=== PATIENT | female | born 1990 | race Caucasian/White ===

== ENCOUNTER 2022-09-07 09:35 | Outpatient (RCR) | payer BC, SELFPAY ==
[2022-08-03 09:06] VITALS: PULSE 138; O2SAT 95
[2022-08-03 09:11] VITALS: PULSE 100; O2SAT 94
[2022-08-03 09:16] VITALS: PULSE 117; O2SAT 95
[2022-08-03 09:21] VITALS: PULSE 130; O2SAT 95
[2022-08-03 09:25] VITALS: BP 113/70; PULSE 131
[2022-08-10 12:27] VITALS: BP 122/76; PULSE 98
[2022-08-17 09:37] VITALS: BP 116/75; PULSE 114
[2022-08-24 09:11] VITALS: BP 112/80
[2022-09-02 14:01] VITALS: BP 111/70; PULSE 93
[2022-09-07 10:09] VITALS: BP 128/77; PULSE 103
--- NOTE | 2022-09-13 12:37 | P.HP_ITS ---
H&P: HPI History of Present Illness Date/Time: 09/13/22 12:37 Chief Complaint: Twin at term who desires permanent sterilization Narrative: Set 32-year-old multiparous patient admitted for repeat section and bilateral tubal ligation for twins and desires permanent sterilization. [facility] Family History Family History Mother Diabetes mellitus Hypertension High cholesterol Father Diabetes mellitus Myasthenia gravis Sibling Hypertension High cholesterol Grandparent Heart disease Uterine cancer Skin cancer Diabetes mellitus Hypertension Dementia Breast cancer in female Social History Social History Substance use: never Spiritual care concerns: No Meds Home Medications and Allergies Home Medications Medication Instructions Recorded Confirmed Type [id number] fum 28 1 pkg PO DAILY 08/03/22 08/03/22 History mg-folic acid 800 mcg-dha 200 mg oral pack ( + DHA) valacyclovir 500 mg tablet 500 mg PO DAILY 08/03/22 08/03/22 History (Valtrex) Allergies Allergy/AdvReac Type Severity Reaction Status Date / Time No Known Allergies Allergy Verified 09/02/22 13:58 Exam Const: General: cooperative, healthy appearing, comfortable and well groomed Nutritional Appearance: average body habitus Orientation/consciousness: oriented to person, oriented to place and oriented to time HENMT: Head: normal to inspection Resp: Effort & Inspection: normal respiratory effort Cardio: Rate: regular rate Rhythm: regular rhythm Heart sounds: S1 normal heart sound present and S2 normal heart sound present GI: Inspection: normal to inspection (Gravid uterus consistent with twins) : External Female Exam: normal external appearance Speculum Exam - Vagina: normal appearance of the vagina Speculum Exam - Cervix: normal appearance of the cervix (Long thick and closed) Assessment and Plan Assessment and plan (1) Twin : Code(s): O30.009 - Twin , unspecified number of placenta and unspecified number of amniotic sacs, unspecified trimester Status: Acute (2) Term : Code(s): Z34.90 - Encounter for supervision of normal , unspecified, unspecified trimester Status: Acute (3) Sterilization: Code(s): Z30.2 - Encounter for sterilization Status: Acute Plan Repeat low transverse section. Bilateral tubal ligation
== END 2022-10-17 18:23 | disposition home or self-care (01) ==
LOC: ANHOBOP 09:35
PROVIDERS: PCP Nurse Practitioner; Visit Provider Obstetrics & Gynecology
DX: O30.003 Twin pregnancy, unspecified number of placenta and unspecified number of amniotic sacs, third trimester (principal); Z3A.32 32 weeks gestation of pregnancy; Z3A.34 34 weeks gestation of pregnancy; Z3A.35 35 weeks gestation of pregnancy; Z3A.36 36 weeks gestation of pregnancy; Z3A.37 37 weeks gestation of pregnancy
CPT/HCPCS: 59025

== ENCOUNTER 2022-09-14 10:41 | Outpatient (CLI) | payer BC, SELFPAY ==
[2022-09-14 11:39] LABS: Hematocrit 35.8 % (37.0-47.0); Mean Corpuscular HGB Conc 33.5 g/dl (32-36); Mean Corpuscular Hemoglobin 29.2 pg (26-34); Mean Corpuscular Volume 87.1 fl (80-100); Mean Platelet Volume 10.7 fl (7.4-10.4); Platelet Count Result 243 k/mm3 (150-375); Red Blood Count 4.11 M/mm3 (4.2-5.4); Red Cell Distribution Width 13.4 % (11.5-14.5); White Blood Count 9.3 K/mm3 (4.5-10.0)
[2022-09-15 10:24] LABS: Rapid Plasma Reagin Non-Reactive (NonReactive)
== END 2022-09-14 10:42 | disposition home or self-care (01) ==
PROVIDERS: PCP Nurse Practitioner; Visit Provider Obstetrics & Gynecology
DX: Z01.812 Encounter for preprocedural laboratory examination (principal)
CPT/HCPCS: 36415; 85027; 86592; 86850; 86900; 86901

== ENCOUNTER 2022-09-15 05:26 | Inpatient (IN) | payer BC, SELFPAY ==
--- NOTE | 2022-09-02 14:20 | PC.NURSE ---
Verified with OR schedule and patient--C/S 0n 09/15/22 at 0730 with Tubal ligation Patient given requisition for lab drawn on 09/14/22
--- NOTE | 2022-09-13 12:39 | HP_ITS ---
This report was moved to the correct visit on 09/26/2022. Original report was signed by Hari Rosenbaum MD 09/13/22 1239. H&P: HPI History of Present Illness Date/Time: 09/13/22 12:37 Chief Complaint: Twin at term who desires permanent sterilization Narrative: Set 32-year-old multiparous patient admitted for repeat section and bilateral tubal ligation for twins and desires permanent sterilization. [facility] Family History Family History Mother Diabetes mellitus Hypertension High cholesterol Father Diabetes mellitus Myasthenia gravis Sibling Hypertension High cholesterol Grandparent Heart disease Uterine cancer Skin cancer Diabetes mellitus Hypertension Dementia Breast cancer in female Social History Social History Substance use: never Spiritual care concerns: No Meds Home Medications and Allergies Home Medications Medication Instructions Recorded Confirmed Type [id number] fum 28 1 pkg PO DAILY 08/03/22 08/03/22 History mg-folic acid 800 mcg-dha 200 mg oral pack ( + DHA) valacyclovir 500 mg tablet 500 mg PO DAILY 08/03/22 08/03/22 History (Valtrex) Allergies Allergy/AdvReac Type Severity Reaction Status Date / Time No Known Allergies Allergy Verified 09/02/22 13:58 Exam Const: General: cooperative, healthy appearing, comfortable and well groomed Nutritional Appearance: average body habitus Orientation/consciousness: oriented to person, oriented to place and oriented to time HENMT: Head: normal to inspection Resp: Effort & Inspection: normal respiratory effort Cardio: Rate: regular rate Rhythm: regular rhythm Heart sounds: S1 normal heart sound present and S2 normal heart sound present GI: Inspection: normal to inspection (Gravid uterus consistent with twins) : External Female Exam: normal external appearance Speculum Exam - Vagina: normal appearance of the vagina Speculum Exam - Cervix: normal appearance of the cervix (Long thick and closed) Assessment and Plan Assessment and plan (1) Twin : Code(s): O30.009 - Twin , unspecified number of placenta and unspecified number of amniotic sacs, unspecified trimester Status: Acute (2) Term : Code(s): Z34.90 - Encounter for supervision of normal , unspecified, unspecified trimester Status: Acute (3) Sterilization: Code(s): Z30.2 - Encounter for sterilization Status: Acute Plan Repeat low transverse section. Bilateral tubal ligation This report may have been done utilizing a voice recognition system. Attempts have been made to correct errors. However, there may be uncorrected grammatical, spelling, and recognition errors present. Report Initialized date/time: Hari Rosenbaum MD 09/13/22 / 1239 Electronically signed by: Hari Rosenbaum MD 09/13/22 1239 [facility]
[2022-09-15] VITALS (63 sets, daily range): BP systolic 85–145; BP diastolic 48–105; PULSE 46–135; RESP 14–18; TEMP 36.2–36.7; O2SAT 94–100; BMI 34.8
--- NOTE | 2022-09-15 05:54 | LDADM ---
This patient, Jorge Wu, was admitted to Labor/Delivery/Recovery 120 on 09/15/22 at 05:26. Plans for labor, pain management and were discussed with patient. Patient/family oriented to hospital policies and general routines including ID bracelet, bed and alarms, visiting hours, pain management, procedures, bathroom and other care routines, personal items, smoking policy, room service/diet and guest tray routines, security routines, and visiting hours. Patient/Family are encouraged to report perceived risks to care and to ask questions if they do not understand what they are told or what they should do. See OBIX for further documentation.
[2022-09-15] MEDS: LACTATED RINGERS 1,000 ML 125 ML IV CONT ×2 (06:34→07:37)
--- NOTE | 2022-09-15 06:35 | WPDANESEPPF ---
Anes - Initial Pre Proc Eval Procedure: Operation Date: 09/15/22 07:30 Proposed Procedures p Repeat Section (Twins) with Bilateral Tubal Ligation - Hari Lozano MD Date/Time: 09/15/22 06:35 Surgeon: Hari Lozano MD Pre Op Diagnosis: Repeat C/S Patient Data Age: 32 Gender: F Height: 1.63 m Weight: 92 kg Last Vital Signs Pulse 92 09/15/22 06:31 BP 125/81 09/15/22 06:31 O2 Del Method Room Air 09/15/22 05:52 Allergies Allergy/AdvReac Type Severity Reaction Status Date / Time No Known Allergies Allergy Verified 09/02/22 13:58 Home Medications Medication Instructions Recorded Confirmed Type [id number] fum 28 1 pkg PO DAILY 08/03/22 08/03/22 History mg-folic acid 800 mcg-dha 200 mg oral pack ( + DHA) valacyclovir 500 mg tablet 500 mg PO DAILY 08/03/22 09/15/22 History (Valtrex) Patient hx anesthesia problems: none Family hx anesthesia problems: none Results Review: All pre-operative results and documents have been reviewed as part of the pre-operative evaluation. [facility] Family History Family History Mother Diabetes mellitus Hypertension High cholesterol Father Diabetes mellitus Myasthenia gravis Sibling Hypertension High cholesterol Grandparent Heart disease Uterine cancer Skin cancer Diabetes mellitus Hypertension Dementia Breast cancer in female Social History Social History Smoking status: Never smoker Substance use: never Lack of Transportation: No Lack of Food: Never True Current Housing: I Have Housing Concerned About Future Housing: No Difficulty Paying Gas/Electric Bills: No Difficulty Paying for Meds: No Currently Unemployed: No Education: Master's Degree or Higher Difficulty w/ Childcare or Family Care: No Spiritual care concerns: No Anes - Eval Final PreProcedure Day of Procedure 09/15/22 06:35 Patient weight: obese Heart: regular rate and rhythm Lungs: clear to auscultation Airway: Mallampati scale class II Neurological: alert and oriented Last oral intake: >/= 8 hours ASA classification: II Emergent: no Anesthetic plan: proceed Anesthesia type and monitoring: regional spinal and standard monitoring Results Review: All pre-operative results and documents have been reviewed as part of the pre-operative evaluation. Informed Consent: The patient's anesthetic plan and its attendant risks and benefits were discussed with the patient/family/POA. Questions were solicited and answers provided to the satisfaction of the patient/family/POA.
--- NOTE | 2022-09-15 06:50 | WPDHPUPDATE1 ---
History and Physical Update Update Date/Time: 09/15/22 06:50 History and Physical has been reviewed, including an updated exam of the patient. There are NO changes in the patient's condition. Risks, benefits, and alternatives have been discussed and questions answered. Patient agrees to proceed with procedure.
[2022-09-15] MEDS: ceFAZolin 2 GM/D5W 50 ML 2 GM/50 ML BAG IVPB (07:47)
--- NOTE | 2022-09-15 08:33 | P.OP_ITS ---
Procedure Note - Detailed Date of Procedure 09/15/22 Pre-op Diagnosis Repeat C/S/ sterilization Post-op Diagnosis Same Procedure Performed repeat low-transverse section and bilateral tubal ligation via modified Surya method Surgeon Hari Lozano MD Anesthesia Spinal Indications this is a 32-year-old female multiparous with twins breech breech at 38 weeks gestation who desires permanent sterilization and previous section Findings baby a male tobi breech 6lb 12oz Apgars 9 and 9 baby B double footling breech female 515 with Apgars of 8 and 9. Normal-appearing anatomy otherwise Description of Procedure patient was prepped draped in the normal sterile fashion placed in the supine position. Under excellent spinal anesthetic the abdomen was entered in Pfannenstiel fashion progressive layers to the fascia. Fascia incised in upward outward fashion bilaterally. Underlying muscles sharply dissected. Parietal peritoneum Jessika by [place] clamps. This was carried superiorly and inferiorly the dome of the bladder. Bladder flap formed bladder blade returned. A low- transverse incision made and baby a delivered at breech to the maternal right legs were swept medially arms were swept medially head delivered in the flexed position. Cord clamped x2 and cut and passed off the table given Apgars of 9 and 9 with a min respectively. Baby B was noted to be double footling breech r upture membranes was performed feet were delivered followed by sweeping of the arms medially and the head delivered in the flexed position. Cord clamped x2 and cut infant passed off the table given Apgars of 8 [id number] 9 [id number]. Cord blood was drawn from each placenta. Placenta delivered intact manually. Uterus delivered from the abdomen wrapped in moist towel. After assuring no membranes remained in the uterus, the uterus was closed with continuous running 0 Vicryl from lateral edge to lateral edge. This followed by 2nd imbricating running locking 0 Vicryl from lateral edge to lateral edge. Hemostasis was assured attention was turned to the tubes. The right fallopian tube was grasped was midportion. Knuckle of tube free tied with 0 chromic. The peritoneum between pierced the distal proximal legs were free tied with 0 chromic in the portion between removed. Hemostasis was assured. This was repeated on the contralateral side by grabbing the fallopian tube at its midportion a good knuckle of tube free formed. Peritoneum between pierced and the distal and proximal legs free tied with 0 chromic. The portion between cut and passed off the table as portion of left fallopian tube. Hemostasis was assured. The uterine incision inspected 1 last time looked hemostatic. Uterus returned the abdomen. Laps removed and accounted for the abdomen. The hysterotomy incision inspected 1 last time noted be hemostatic. The fascia closed with continuous running 0 Vicryl from lateral edge to midline bilaterally. Irrigation subcutaneous layer and skin closed with 4 Monocryl and glue. Blood loss for the entire procedure was given [id number]. All sponge, needle, instrument counts were correct. Mom babies are doing fine the time of dictation there were no immediate complications. Estimated Blood Loss 250 Drains No Packing No Pathology Yes Complications No immediate complications Condition Stable Disposition PACU
[2022-09-15] MEDS: OXYTOCIN 30 UNITS/NS 500 ML 30 UNITS/500 ML BAG 125 UNITS IV CONT (09:01)
[2022-09-15] MEDS: MORPHINE SULFATE INJ (*CRX) 10 MG/ML AMP 3 MG IV PUSH (09:42)
[2022-09-15] MEDS: METHYLERGONOVINE MALEATE 0.2 MG/ML VIAL (09:44)
--- NOTE | 2022-09-15 11:00 | OBPPTRN ---
Patient transferred to post room # 282 via stretcher accompanied by spouse. Infants remain in nursery for observation. Support person present and no barriers to learning identified at this time. Oriented to unit, room, information board, rooming in, admission packet and security measures. Pt introductions made and plan of care discussed per post op c section, pain management, bottle feeding, daily care activities. PT received such instructions per one to one discussion, mom baby care guide and demonstrations this shift. Patient verbalizes understanding.
[2022-09-15] MEDS: HYDROcodone/acetaminophen (*CRX) 10-325 MG TABLET 1 TAB PO ×3 (12:19→22:28)
[2022-09-15] MEDS: DEXTROSE 5%/0.45% SOD CHL 1,000 ML 125 ML IV CONT (13:20)
[2022-09-15] MEDS: LANOLIN (LANSINOH) 7.5 GM CREAM 1 APPLIC TOPICAL (15:44)
[2022-09-15] MEDS: SIMETHICONE 80 MG TAB.CHEW PO ×2 (17:44→22:28)
[2022-09-15] MEDS: POLYSACCHARIDE IRON COMPLEX 150 MG CAPSULE PO (17:44)
[2022-09-15] MEDS: DOCUSATE SODIUM 100 MG CAPSULE PO (17:44)
[2022-09-15] MEDS: IBUPROFEN 600 MG TABLET PO (17:45)
[2022-09-15] MEDS: HYDROcodone/acetaminophen (*CRX) 5-325 MG TABLET 1 TAB PO (19:49)
[2022-09-16] MEDS: SIMETHICONE 80 MG TAB.CHEW PO ×4 (01:28→20:31)
[2022-09-16] MEDS: HYDROcodone/acetaminophen (*CRX) 10-325 MG TABLET 1 TAB PO ×8 (01:28→23:42)
[2022-09-16] MEDS: IBUPROFEN 600 MG TABLET PO ×4 (01:30→23:43)
[2022-09-16 05:33] LABS: Basophils Percent Auto 0.1 % (0.2-1.2); Eosinophils Absolute Auto 0.1 K/mm3 (0-0.3); Hematocrit 28.7 % (37.0-47.0); Hemoglobin 9.2 g/dL (12.0-15.0); Immature Granulocyte Absolute 0.09 K/mm3 (0.00-0.031); Immature Granulocyte Percent A 0.9 % (0-0.5); Lymphocytes Absolute Auto 1.77 K/mm3 (0.9-3.2); Lymphocytes Percent Auto 16.8 % (18.3-44.2); Mean Corpuscular HGB Conc 32.1 g/dl (32-36); Mean Corpuscular Hemoglobin 28.4 pg (26-34); Mean Corpuscular Volume 88.6 fl (80-100); Mean Platelet Volume 11.1 fl (7.4-10.4); Monocytes Absolute Auto 0.7 K/mm3 (0.1-0.6); Monocytes Percent Auto 6.6 % (2.6-8.5); Neutrophils Absolute Auto 7.9 K/mm3 (1.3-6.7); Neutrophils Percent Auto 74.6 % (45.5-73.1); Platelet Count Result 180 k/mm3 (150-375); Red Blood Count 3.24 M/mm3 (4.2-5.4); Red Cell Distribution Width 13.4 % (11.5-14.5); White Blood Count 10.6 K/mm3 (4.5-10.0)
--- NOTE | 2022-09-16 07:24 | PM.DS ---
DS: Admitting Diagnosis Discharge Date 09/17/2022 Admitting Diagnosis term with twins/positive group B strep/previous section /sterilization DS: Discharge Diagnosis Discharge Diagnosis (1) Sterilization: Code(s): Z30.2 - Encounter for sterilization Status: Acute (2) Term : Code(s): Z34.90 - Encounter for supervision of normal , unspecified, unspecified trimester Status: Acute (3) Twin : Code(s): O30.009 - Twin , unspecified number of placenta and unspecified number of amniotic sacs, unspecified trimester Status: Acute DS: Summary Hospital Course Reason for hospitalization: patient was admitted for repeat section and tubal ligation at 38 weeks gestation with twins Hospital Course: patient an unremarkable repeat section tubal ligation on 09/15/2022. Hospital course unremarkable. She remained afebrile. She was up, voiding without difficulty, eating regular diet, ambulating, generally without complaints. Time Spent with Patient Time attestation: Total time spent providing and/or coordinating discharge services: Exam Const: General: cooperative, healthy appearing and comfortable Nutritional Appearance: average body habitus Orientation/consciousness: oriented to person, oriented to place and oriented to time HENMT: Head: normal to inspection Chest: Chest palpation & inspection: normal inspection of the chest Resp: Effort & Inspection: normal respiratory effort Cardio: Rate: regular rate Rhythm: regular rhythm Heart sounds: S1 normal heart sound present and S2 normal heart sound present GI: Inspection: normal to inspection and incision ( Wound clean dry intact) Auscultation: normal bowel sounds DS: Data Data Completed and Pending Pending studies at discharge: Pending at discharge 09/15/22 08:29 Surgical [PTH] Routine Labs on day of discharge: Labs from last 24 hours 09/16/22 04:47 WBC 10.6 H RBC 3.24 L Hgb 9.2 L Hct 28.7 L MCV 88.6 MCH 28.4 MCHC 32.1 RDW 13.4 Plt Count 180 MPV 11.1 H Immature Gran % (Auto) 0.9 H Neut % (Auto) 74.6 H Lymph % (Auto) 16.8 L [place] % (Auto) 6.6 Eos % (Auto) 1.0 Baso % (Auto) 0.1 L Lymph # (Auto) 1.77 [place] # (Auto) 0.7 H Eos # (Auto) 0.1 Baso # (Auto) 0.0 Abs Immat Gran (auto) 0.09 H Absolute Neuts (auto) 7.9 H Absolute Nucleated RBC 0.0 Nucleated RBC % 0.0 Discharge Plan Discharge Attending physician on discharge: Hari Rosenbaum Discharging Clinician: Hari Rosenbaum Patient Disposition: Home, Self-Care Activity: may shower, no straining and pelvic rest Diet: heart healthy Wound Care Instructions: follow printed instructions Patient Instructions: Antibiotic Form Stand Alone Forms: General Discharge Information Follow-up/Referrals: Hari Rosenbaum MD [Physician] - Discharge Medications: New hydrocodone-acetaminophen 5-325 mg tablet 1 tablet PO Q4H PRN (Reason: pain) Qty: 30 0RF No Action valacyclovir [Valtrex] 500 mg Tablet 500 mg PO DAILY + DHA 28 mg iron-800 mcg-200 mg Combo Pack 1 pkg PO DAILY Date of admission: 09/15/22 05:26 Primary Care Provider: Tati,Nette Clark Admitting Provider: Hari Rosenbaum Attending physician on admission: Hari Rosenbaum Condition: Stable
--- NOTE | 2022-09-16 07:26 | PM.OBPNVD ---
OB - PN: Subj Subjective Date/time seen: 09/16/22 07:26 Patient comments: no complaints and pain well controlled baby status: doing well OB - PN: Obj Data Labs 09/16/22 04:47 Labs: Laboratory Results - last 24 hr 09/16/22 04:47 WBC 10.6 H RBC 3.24 L Hgb 9.2 L Hct 28.7 L MCV 88.6 MCH 28.4 MCHC 32.1 RDW 13.4 Plt Count 180 MPV 11.1 H Immature Gran % (Auto) 0.9 H Neut % (Auto) 74.6 H Lymph % (Auto) 16.8 L [place] % (Auto) 6.6 Eos % (Auto) 1.0 Baso % (Auto) 0.1 L Lymph # (Auto) 1.77 [place] # (Auto) 0.7 H Eos # (Auto) 0.1 Baso # (Auto) 0.0 Abs Immat Gran (auto) 0.09 H Absolute Neuts (auto) 7.9 H Absolute Nucleated RBC 0.0 Nucleated RBC % 0.0 OB - PN A/P Plan day: 1 Plan: routine care Time Spent With Patient Time: Total time spent is greater than 50% in coordination of care (as documented) at patient's floor/unit and/or counseling patient: Time with patient: less than 15 minutes Exam Const: General: cooperative, healthy appearing and comfortable Nutritional Appearance: average body habitus Orientation/consciousness: oriented to person, oriented to place and oriented to time HENMT: Head: normal to inspection Resp: Effort & Inspection: normal respiratory effort Cardio: Rate: regular rate Rhythm: regular rhythm Heart sounds: S1 normal heart sound present and S2 normal heart sound present GI: Inspection: normal to inspection and incision ( wound clean dry and intact)
[2022-09-16] MEDS: DOCUSATE SODIUM 100 MG CAPSULE PO ×2 (07:59→17:13)
[2022-09-16] MEDS: POLYSACCHARIDE IRON COMPLEX 150 MG CAPSULE PO ×2 (08:00→17:13)
[2022-09-16 09:12] VITALS: BP 117/64; PULSE 73; RESP 18; TEMP 36.4
--- NOTE | 2022-09-16 14:05 | WPDANLDNPN2 ---
Anes-Prog Note L&D-Neuraxial Date/Time: 09/16/22 14:05 Neuraxial medications: intrathecal PF morphine Patient feedback: Patient satisfied with post-operative pain management.
--- NOTE | 2022-09-16 14:09 | WPDANLDPN2 ---
Anes-Prog Note L&D Date/Time: 09/16/22 14:09 Comfortable throughout: section Neuraxial method: spinal Epidural/Spinal procedure site: clean & non-tender Neuro status: Neuro function grossly intact. Cardiovascular status: normal Respiratory status: normal Airway patency: baseline Mental status: baseline Post-Op hydration status: normal Vital Signs: Last Vital Signs Temp 36.4 C 09/16/22 09:12 Pulse 73 09/16/22 09:12 Resp 18 09/16/22 09:12 BP 117/64 09/16/22 09:12 Pulse Ox 97 09/15/22 17:44 O2 Del Method Room Air 09/16/22 09:12 Pain score (VAS): 3/10 I/O: Intake & Output 09/15/22 09/16/22 09/16/22 23:59 07:59 15:59 Intake Total 2600 500 Output Total 800 1100 Balance 1800 -600 Post-procedural complaints: none Patient feedback: Patient satisfied with anesthetic care.
[2022-09-16 20:00] VITALS: BP 121/76; PULSE 60; RESP 20; TEMP 36.2
[2022-09-17] MEDS: HYDROcodone/acetaminophen (*CRX) 10-325 MG TABLET 1 TAB PO ×4 (02:54→14:29)
[2022-09-17] MEDS: IBUPROFEN 600 MG TABLET PO ×2 (06:31→14:30)
--- NOTE | 2022-09-17 06:41 | PM.OBPNVD ---
OB - PN: Subj Subjective Date/time seen: 09/17/22 06:41 Patient comments: no complaints and pain well controlled baby status: doing well OB - PN: Obj Data Labs 09/16/22 04:47 OB - PN A/P Plan day: 3 Plan: routine care, discharge home and follow up 6 weeks ( 4 weeks) Time Spent With Patient Time: Total time spent is greater than 50% in coordination of care (as documented) at patient's floor/unit and/or counseling patient: Time with patient: less than 15 minutes Exam Const: General: cooperative, healthy appearing, comfortable and well groomed Nutritional Appearance: average body habitus Orientation/consciousness: oriented to person, oriented to place and oriented to time HENMT: Head: normal to inspection Resp: Effort & Inspection: normal respiratory effort Cardio: Rate: regular rate Rhythm: regular rhythm Heart sounds: S1 normal heart sound present and S2 normal heart sound present GI: Inspection: normal to inspection and incision ( wound is clean dry and intact)
[2022-09-17 07:22] VITALS: BP 122/75; PULSE 59; RESP 12; TEMP 36.7; O2SAT 98
[2022-09-17] MEDS: DOCUSATE SODIUM 100 MG CAPSULE PO (08:40)
[2022-09-17] MEDS: POLYSACCHARIDE IRON COMPLEX 150 MG CAPSULE PO (08:40)
[2022-09-17] MEDS: SIMETHICONE 80 MG TAB.CHEW PO (10:23)
--- NOTE | 2022-09-17 11:12 | WPDANLDNPN2 ---
Anes-Prog Note L&D-Neuraxial Date/Time: 09/17/22 11:12 Neuraxial medications: intrathecal PF morphine Opiod-related complaints: none Patient feedback: Patient satisfied with post-operative pain management.
--- NOTE | 2022-09-17 11:25 | PC.NURSE ---
Patient viewed the discharge video Mother & Baby Care, The First Two Weeks . Patient was given the opportunity and encouraged to ask questions. Patient verbalized understanding of information shared and has been given the mother/baby guide for home reference.
[2022-09-20 10:54] VITALS: BP 138/74; PULSE 50; RESP 16; TEMP 37.2; O2SAT 99
== END 2022-09-17 15:10 | disposition home or self-care (01) | DRG 785 ==
LOC: ANHLDR 05:30 → ANHOB2 11:22
PROVIDERS: Admitting Provider Obstetrics & Gynecology; PCP Nurse Practitioner; Visit Provider Obstetrics & Gynecology
PROC: 10D00Z1 Extraction of Products of Conception, Low, Open Approach (ICD-10-PCS; CPT 59514; principal; 2022-09-15 07:30)
DX: O34.219 Maternal care for unspecified type scar from previous cesarean delivery (principal); O30.003 Twin pregnancy, unspecified number of placenta and unspecified number of amniotic sacs, third trimester; O32.1XX1 Maternal care for breech presentation, fetus 1; O32.8XX2 Maternal care for other malpresentation of fetus, fetus 2; Z30.2 Encounter for sterilization; O99.824 Streptococcus B carrier state complicating childbirth; Z3A.38 38 weeks gestation of pregnancy; Z37.2 Twins, both liveborn
CPT/HCPCS: 36415; 85025; 88302; A9270; J0131; J0690; J2210; J2270; J2274; J2370; J2405; J2590; J7120

== ENCOUNTER 2022-11-07 14:43 | Emergency (ER) | payer BC, SELFPAY ==
--- NOTE | ~2022-11-07 | US_ITS ---
EXAMINATION: US pelvic complete DATE: 11/07/2022 18:02 INDICATION: vaginal bleeding TECHNIQUE: Multiple transabdominal sonographic images of the pelvis were obtained. COMPARISON: None. FINDINGS: Uterus: 9.6 x 4.7 x 5.2 cm. Endometrial complex measures 7 mm. Right Ovary: 3.6 x 1.7 x 2.1 cm. Vascular flow is present. No adnexal mass. Left Ovary: 3.2 x 2.2 x 2.1 cm. Vascular flow is present. No adnexal mass. There is no free fluid in the pelvis. IMPRESSION: Normal pelvic sonogram findings. Reviewed, dictated and finalized at location K.
[2022-11-07 14:49] VITALS: BP 117/75; PULSE 83; RESP 16; TEMP 36.2; O2SAT 100
[2022-11-07 15:04] LABS: Basophils Percent Auto 0.5 % (0.2-1.2); Eosinophils Absolute Auto 0.2 K/mm3 (0-0.3); Eosinophils Percent Auto 2.4 % (0-4.4); Hematocrit 38.9 % (37.0-47.0); Hemoglobin 12.9 g/dL (12.0-15.0); Immature Granulocyte Absolute 0.02 K/mm3 (0.00-0.031); Immature Granulocyte Percent A 0.2 % (0-0.5); Lymphocytes Absolute Auto 2.28 K/mm3 (0.9-3.2); Lymphocytes Percent Auto 27.8 % (18.3-44.2); Mean Corpuscular HGB Conc 33.2 g/dl (32-36); Mean Corpuscular Hemoglobin 28.6 pg (26-34); Mean Corpuscular Volume 86.3 fl (80-100); Mean Platelet Volume 9.5 fl (7.4-10.4); Monocytes Absolute Auto 0.4 K/mm3 (0.1-0.6); Monocytes Percent Auto 5.4 % (2.6-8.5); Neutrophils Absolute Auto 5.2 K/mm3 (1.3-6.7); Neutrophils Percent Auto 63.7 % (45.5-73.1); Platelet Count Result 342 k/mm3 (150-375); Red Blood Count 4.51 M/mm3 (4.2-5.4); Red Cell Distribution Width 13.6 % (11.5-14.5); White Blood Count 8.2 K/mm3 (4.5-10.0)
--- NOTE | 2022-11-07 17:23 | ED.GENADULT ---
HPI - General Adult General Chief complaint: Vaginal Bleeding Stated complaint: vag bleed Time Seen by Provider: 11/07/22 17:07 History of Present Illness HPI narrative: 32-year-old female presenting to the emergency department for evaluation of heavy vaginal bleeding. Patient reports that she did deliver twins on 09/15 and did have a tubal ligation by Dr. Rodney Lozano. Patient states she just recently finished having any spotting just a few weeks ago and then 3 days ago started having some light vaginal bleeding again. Patient had heavier vaginal bleeding yesterday that then improved and then patient had heavy vaginal bleeding today. Patient called her [facility] and was deferred to the emergency department for an ultrasound. Related Data Home Medications Medication Instructions Recorded Confirmed [id number] fum 28 1 pkg PO DAILY 08/03/22 08/03/22 mg-folic acid 800 mcg-dha 200 mg oral pack ( + DHA) valacyclovir 500 mg tablet 500 mg PO DAILY 08/03/22 09/15/22 (Valtrex) Allergies Allergy/AdvReac Type Severity Reaction Status Date / Time No Known Allergies Allergy Verified 11/07/22 14:47 Review of Systems Review of Systems: All systems reviewed & are unremarkable except as noted in HPI and below PMFSH Family History Family History Mother Diabetes mellitus Hypertension High cholesterol Father Diabetes mellitus Myasthenia gravis Sibling Hypertension High cholesterol Grandparent Heart disease Uterine cancer Skin cancer Diabetes mellitus Hypertension Dementia Breast cancer in female Social History Social History Smoking status: Never smoker Substance use: never Lack of Transportation: No Lack of Food: Never True Current Housing: I Have Housing Concerned About Future Housing: No Difficulty Paying Gas/Electric Bills: No Difficulty Paying for Meds: No Currently Unemployed: No Education: Master's Degree or Higher Difficulty w/ Childcare or Family Care: No Spiritual care concerns: No Exam Narrative: APPEARANCE: Well appearing, no pain, no distress, well-nourished. HEAD: normocephalic, atraumatic. EYES: PERRLA/EOMI, conjunctivae clear. NOSE: Normal no drainage EARS:TMS clear with good light reflex. THROAT: Pharynx clear, no exudate. NECK: Supple. No adenopathy, no masses. RESPIRATORY: Airway patent, respirations nonlabored. Clear to auscultation bilaterally, no rales, rhonchi, wheezing. CARDIOVASCULAR: Regular rate and rhythm without murmurs rubs or gallops. ABDOMINAL: Soft, nontender, nondistended, normal bowel sounds Vaginal: Small amount of vaginal bleeding, no significant clots or hemorrhage MUSCULOSKELETAL: Moves all extremities. Strength/ROM intact, No edema, No calf tenderness. NEURO: Alert. Cranial nerves II through XII intact. Good gait. Good coordination SKIN: Warm, dry. Normal Color PSYCHIATRIC: Normal affect/mood. Course Course Emergency Course: 32 old female presented ED for evaluation of worsening vaginal bleeding, this was the patient's first menstrual cycle after her . Patient is afebrile with no leukocytosis and has a hemoglobin of 12.9. Ultrasound was ordered and showed no retained products of conception. Pelvic exam showed vaginal bleeding but no hemorrhage and no large clots. Patient does feel improved. Patient family updated the results of the work-up and she was encouraged of close follow-up with [facility]. All question concerns were addressed. Patient was well-appearing at time of discharge. Vital Signs Vital signs: Vital Signs Temperature 97.1 F L 11/07/22 14:49 Pulse Rate 83 11/07/22 14:49 Respiratory Rate 16 11/07/22 14:49 Blood Pressure 117/75 11/07/22 14:49 Pulse Oximetry 100 11/07/22 14:49 Temperature 97.1 F L 11/07/22 14:49 Pulse Rate 83 11/07/22 14:49 Respirat
== END 2022-11-07 19:01 | disposition home or self-care (01) ==
PROVIDERS: Emergency Medicine; Emergency Provider Emergency Medicine; PCP Nurse Practitioner
DX: N93.9 Abnormal uterine and vaginal bleeding, unspecified (principal)
CPT/HCPCS: 36415; 76856; 85025; 86850; 86900; 86901; 99284

== ENCOUNTER 2024-07-18 02:39 | Day surgery (SDC) | payer BC, SELFPAY ==
[2024-03-19 09:58] VITALS: BMI 22.6
--- NOTE | 2024-03-19 10:06 | PC.NURSE ---
Report to the Outpatient Waiting Room, entrance under the green pavilion located off [facility], at time 0600_ on date _03/28/24_. Planned Procedure Time: 729__.? Time changes happen often and if your time is changed the preop area will call you the afternoon before. - You and your visitor will be asked to self-screen and do not enter if you have any COVID symptoms. Please call surgeon if you need to reschedule. - A mask is optional within the hospital at this time. Patients may have clear liquids (water, carbonated beverages, clear teas, apple juice) until 3 hours prior to surgery with a maximum of 20 ounces. - No food from midnight until time of surgery and no smoking - Infants may have breast milk until 4 hours before surgery, formula 6 hours prior to surgery. - Children will be allowed to drink immediately following surgery.? If applicable, please bring a bottle or sippy cup to assist with drinking. Juice, water, soda, and popsicles are readily available.? For infants on formula, please bring formula the day of surgery.? Pacifiers are allowed. Take only the following medications with a SIP of water on the morning of surgery: ___none DO NOT STOP ANY OF YOUR OTHER PRESCRIPTION MEDICATIONS PRIOR TO SURGERY EXCEPT THE FOLLOWING Medications to discontinue per physician zepbound Date to take last dose____03/13/24 Please no make-up, nail mongolian, hairspray, perfume, deodorant, or body powder the day of surgery.? No jewelry (including any body piercings) or valuables the day of surgery, leave them at home.? Please take a shower or bath the night before, or the morning of, surgery with an antibacterial soap.? Wear comfortable, loose fitting clothing.? Children are encouraged to wear pajamas. - Jewelry must be removed prior to entering the operating room.? Rings and piercings that are not removed may be cut off. - The hospital will not accept responsibility for valuables.? - Please leave all valuables, including medications, at home the day of surgery. If you are going home after surgery, a licensed cryogenic transport driver must drive you home.? - NO public transportation without another adult if you receive anesthesia. - We recommend that an adult stay with you for 24 hours following discharge. - We also recommend that you do not drive, make important decision, drink alcoholic beverages, or take any drugs that were not prescribed by your health care provider for at least 24 hours after your discharge time. For Pediatric surgeries, we recommend two adults accompany the child home. Follow any additional instructions given to you from your surgeon. Telephone instructions given to _patient_and asked if any additional questions and then verbalized understanding. Patient advised to call surgeon office or pre surgery nurse liaison [phone] if any additional questions.
--- NOTE | 2024-06-10 14:42 | SUR.PREOP ---
Report to the Outpatient Waiting Room, entrance under the green pavilion located off [facility], at time _0600_ on date _06/20/2024_. Planned Procedure Time: _0730_.? Time changes happen often and if your time is changed the preop area will call you the afternoon before. - You and your visitor will be asked to self-screen and do not enter if you have any COVID symptoms. Please call surgeon if you need to reschedule. - A mask is optional within the hospital at this time. Patients may have clear liquids (water, carbonated beverages, clear teas, apple juice) until 3 hours (0430) prior to surgery with a maximum of 20 ounces. - No food from midnight until time of surgery and no smoking. This includes no chewing gum, candy or mints. - Infants may have breast milk until 4 hours before surgery, formula 6 hours prior to surgery. - Children will be allowed to drink immediately following surgery.? If applicable, please bring a bottle or sippy cup to assist with drinking. Juice, water, soda, and popsicles are readily available.? For infants on formula, please bring formula the day of surgery.? Pacifiers are allowed. Take only the following medications with a SIP of water on the morning of surgery: _NA_ DO NOT STOP ANY OF YOUR OTHER PRESCRIPTION MEDICATIONS PRIOR TO SURGERY EXCEPT THE FOLLOWING Medications to discontinue per physician _ZEPBOUND_ Date to take last dose_06/10/24_ Please no make-up, nail citizen of [place], hairspray, perfume, deodorant, or body powder the day of surgery.? No jewelry (including any body piercings) or valuables the day of surgery, leave them at home.? Please take a shower or bath the night before, or the morning of, surgery with an antibacterial soap.? Wear comfortable, loose fitting clothing.? Children are encouraged to wear pajamas. - Jewelry must be removed prior to entering the operating room.? Rings and piercings that are not removed may be cut off. - The hospital will not accept responsibility for valuables.? - Please leave all valuables, including medications, at home the day of surgery. If you are going home after surgery, a licensed sales warehouse driver must drive you home.? - NO public transportation without another adult if you receive anesthesia. - We recommend that an adult stay with you for 24 hours following discharge. - We also recommend that you do not drive, make important decision, drink alcoholic beverages, or take any drugs that were not prescribed by your health care provider for at least 24 hours after your discharge time. For Pediatric surgeries, we recommend two adults accompany the child home. Follow any additional instructions given to you from your surgeon. Telephone instructions given to _Jorge_and asked if any additional questions and then verbalized understanding. Patient advised to call surgeon office or pre surgery nurse liaison [phone] if any additional questions.
[2024-06-10 14:49] VITALS: BMI 22.3
--- NOTE | 2024-06-18 07:03 | PM.IMHP ---
H&P: HPI History of Present Illness Date/Time: 06/18/24 07:03 Chief Complaint: Excessive heavy bleeding Narrative: This is a [age]-year-old 3 para 3 admitted for hysteroscopy dilatation curettage and endometrial ablation. She understands this is not a form of control her 's undergone the 2nd the past. Risks and benefits of this procedure reviewed including not exclusive of , aspiration pneumonia, bleeding, transfusion, perforation injury to bowel, bladder, ureters, or other internal organs with needle for open laparotomy. She received the ACOG handout entitled hysteroscopy. She had all questions answered and asked to proceed Review of Systems Review of Systems: All systems reviewed & are unremarkable except as noted in HPI and below PMFSH Family History Family History Mother Diabetes mellitus Hypertension High cholesterol Father Diabetes mellitus Myasthenia gravis Sibling Hypertension High cholesterol Grandparent Heart disease Uterine cancer Skin cancer Diabetes mellitus Hypertension Dementia Breast cancer in female Social History Social History Smoking status: Never smoker Second hand tobacco smoke exposure: No Alcohol intake: former Substance use: never Lack of Transportation: No Lack of Food: Never True Current Housing: I Have Housing Concerned About Future Housing: No Difficulty Paying Gas/Electric Bills: No Difficulty Paying for Meds: No Currently Unemployed: No Education: Master's Degree or Higher Difficulty w/ Childcare or Family Care: No Living arrangements: with family Spiritual care concerns: No Meds Home Medications and Allergies Home Medications ?Medication ?Instructions ?Recorded ?Confirmed ?Type tirzepatide (weight loss) 10 12.5 mg subcut .every 3 weeks 03/19/24 06/10/24 History mg/0.5 mL subcutaneous pen injector (Zepbound) Allergies Allergy/AdvReac Type Severity Reaction Status Date / Time No Known Allergies Allergy Verified 06/10/24 14:55 Exam Const: General: cooperative, healthy appearing and comfortable Nutritional Appearance: average body habitus Orientation/consciousness: oriented to person, oriented to place and oriented to time HENMT: Head: normal to inspection Resp: Effort & Inspection: normal respiratory effort Cardio: Rate: regular rate Rhythm: regular rhythm Heart sounds: S1 normal heart sound present and S2 normal heart sound present GI: Inspection: normal to inspection : External Female Exam: normal external appearance Speculum Exam - Vagina: normal appearance of the vagina Speculum Exam - Cervix: normal appearance of the cervix Bimanual exam- vagina & uterus: soft Bimanual Exam- Adnexa, other: normal adnexae Assessment and Plan Assessment and plan (1) Excessive bleeding: Code(s): R58 - Hemorrhage, not elsewhere classified Status: Acute Plan Proceed with hysteroscopy/dilatation curettage/Jennifer ablation
--- NOTE | 2024-07-08 08:55 | SUR.PREOP ---
PER PATIENT NO HISTORY OR MEDICATION CHANGES SINCE PREVIOUS TELEPHONE INTERVIEW. NEW DOS INSTRUCTIONS AND INFO ON CURRENT LAB ORDERS GIVEN TO PATIENT BY THIS RN.
--- NOTE | 2024-07-08 08:56 | SUR.PREOP ---
Report to the Outpatient Waiting Room, entrance under the green pavilion located off [facility], at time _0630_ on date _07/18/2024_. Planned Procedure Time: _0830_.? Time changes happen often and if your time is changed the preop area will call you the afternoon before. - You and your visitor will be asked to self-screen and do not enter if you have any COVID symptoms. Please call surgeon if you need to reschedule. - A mask is optional within the hospital at this time. Patients may have clear liquids (water, carbonated beverages, clear teas, apple juice) until 3 hours (0530) prior to surgery with a maximum of 20 ounces. - No food from midnight until time of surgery and no smoking, or chewing tobacco (or any form of nicotine). No chewing gum, candy or mints. Take only the following medications with a SIP of water on the morning of surgery: _NA_ DO NOT STOP ANY OF YOUR OTHER PRESCRIPTION MEDICATIONS PRIOR TO SURGERY EXCEPT THE FOLLOWING Hold all vitamins and supplements for 3 days per anesthesiologist. Medications to discontinue per physician _Zepbound_ Date to take last dose_07/08/2024_ Please no make-up, nail panamanian, hairspray, perfume, deodorant, or body powder the day of surgery.? No jewelry (including any body piercings) or valuables the day of surgery, leave them at home.? Please take a shower or bath the night before, or the morning of, surgery with an antibacterial soap.? Wear comfortable, loose fitting clothing. - Jewelry must be removed prior to entering the operating room.? Rings and piercings that are not removed may be cut off. - The hospital will not accept responsibility for valuables.? - Please leave all valuables, including medications, at home the day of surgery. If you are going home after surgery, a licensed lift driver must drive you home.? - NO public transportation without another adult if you receive anesthesia. - We recommend that an adult stay with you for 24 hours following discharge. - We also recommend that you do not drive, make important decision, drink alcoholic beverages, or take any drugs that were not prescribed by your health care provider for at least 24 hours after your discharge time. Follow any additional instructions given to you from your surgeon. Telephone instructions given to _Jorge_and asked if any additional questions and then verbalized understanding. Patient advised to call surgeon office or pre surgery nurse liaison [phone] if any additional questions.
--- NOTE | 2024-07-17 12:08 | PM.IMHP ---
H&P: HPI History of Present Illness Date/Time: 07/17/24 12:08 Chief Complaint: Excessive vaginal bleeding Narrative: 33-year-old multiparous patient status post tubal ligation admitted for hysteroscopy/dilatation curettage/Jennifer ablation. Her complaints are heavy irregular bleeding. Risks and benefits reviewed including but exclusive , aspiration pneumonia, bleeding, transfusion, perforation injury to bowel, bladder, ureters, or other internal organs with need for open laparotomy. She received the ACOG handout entitled hysteroscopy as well as dilatation curettage. She received the Jennifer handout. She had all questions answered. She asked to proceed. Review of Systems Review of Systems: All systems reviewed & are unremarkable except as noted in HPI and below PMFSH Family History Family History Mother Diabetes mellitus Hypertension High cholesterol Father Diabetes mellitus Myasthenia gravis Sibling Hypertension High cholesterol Grandparent Heart disease Uterine cancer Skin cancer Diabetes mellitus Hypertension Dementia Breast cancer in female Social History Social History Smoking status: Never smoker Second hand tobacco smoke exposure: No Alcohol intake: former Substance use: never Lack of Transportation: No Lack of Food: Never True Current Housing: I Have Housing Concerned About Future Housing: No Difficulty Paying Gas/Electric Bills: No Difficulty Paying for Meds: No Currently Unemployed: No Education: Master's Degree or Higher Difficulty w/ Childcare or Family Care: No Living arrangements: with family Spiritual care concerns: No Meds Home Medications and Allergies Home Medications ?Medication ?Instructions ?Recorded ?Confirmed ?Type tirzepatide (weight loss) 10 12.5 mg subcut .every 3 weeks 03/19/24 06/10/24 History mg/0.5 mL subcutaneous pen injector (Zepbound) Allergies Allergy/AdvReac Type Severity Reaction Status Date / Time No Known Allergies Allergy Verified 07/08/24 08:53 Exam Const: General: cooperative, healthy appearing and comfortable Nutritional Appearance: average body habitus Orientation/consciousness: oriented to person, oriented to place and oriented to time Resp: Effort & Inspection: normal respiratory effort Cardio: Rate: regular rate Rhythm: regular rhythm Heart sounds: S1 normal heart sound present and S2 normal heart sound present GI: Inspection: normal to inspection Auscultation: normal bowel sounds : External Female Exam: normal external appearance Speculum Exam - Vagina: normal appearance of the vagina Speculum Exam - Cervix: normal appearance of the cervix Bimanual exam- vagina & uterus: uterine shape normal Bimanual Exam- Adnexa, other: normal adnexae Assessment and Plan Assessment and plan (1) Excessive bleeding: Code(s): R58 - Hemorrhage, not elsewhere classified Status: Acute Plan Proceed with hysteroscopy/dilatation curettage/Jennifer ablation
--- OUTSIDE RECORDS SUMMARY | 2024-07-18 02:42 | XMS_ITS | Clinical Summary ---
Author Organization [facility] Address [address] [place] [address] Care Team Providers Care Programmer Numerical Control Name Role Phone Nette Duffy MYRA Primary Care Provider Allergies Active Allergy Reactions Criticality Noted Date Comments Nickel Contact Dermatitis,Itching,Rash Low 07/2020 Medications valACYclovir (VALTREX) 500 MG tablet Take 1 tablet (500 mg total) by mouth daily. 3 Active ZEPBOUND 12.5 MG/0.5ML injectionIndicat ions:Class 1 obesity due to excess calories without serious comorbidity with body mass index (BMI) of 30.0 to 30.9 in adult ADMINISTER 12.5 MG UNDER THE SKIN 1 TIME A WEEK FOR WEIGHT LOSS 2 mL 2 5 Active Active Problems Problem Noted Date Diagnosed Date Constipation 10/20/2022 Family history of colonic polyps 10/20/2022 Flatulence, eructation and gas pain 10/20/2022 Carpal tunnel syndrome 12/22/2020 GERD (gastroesophageal reflux disease) 6 Encounters Date Type Department Care Team Description 05/31/2024 Scan [facility] INFO [facility] Scanned, Doc Med Group from Last 3 Months Immunizations Name Administration Dates Next Due Flucelvax 6 Months+ (Prefill ed Syringe) 02/22/2020,05/21/2018 Fluzone 6 Months+ Quad (0.5 mL Prefilled Syringe) 02/24/2021 Influenza Adult (Generic) 03/21/2022,07/2019,02/23/2019, 018 Tdap (Boostrix) 11/06/2018 Tdap (Generic) 09/02/2022 Family History Medical History Relation Comments Hyperlipidemia Brother Hypertension Brother Autoimmune Disease Father Diabetes Father Hypertension Maternal Grandfather Cancer Maternal Grandmother Uterne, sto mach Diabetes Maternal Grandmother Heart Disease Maternal Grandmother Hypertension Maternal Grandmother AL Maternal Grandmother Diabetes Mother Hyperlipidemia Mother Hypertension Mother Diabetes Paternal Grandfather Early Paternal Grandfather Heart Disease Paternal Grandfather Cancer Paternal Grandmother Breast canc er Diabetes Paternal Grandmother Heart Disease Paternal Grandmother Relation Status Comments Brother Father Maternal Grandfather Maternal Grandmother Mother Paternal Grandfather Paternal Grandmother Social History Tobacco Use Types Packs/Day Years Used Date Smoking Tobacco: Former Cigarettes Passive Smoke Exposure: Past Smokeless Tobacco: Never Tobacco Cessation:Counseling Given: Yes Alcohol Use Standard Drinks/Week Comments Never 0 (1 standard drink = 0.6 oz pur e alcohol) PHQ-2 Answer Date Recorded Patient Health Questionnaire-2 Score 0 07/06/2023 Comments No Sex and Gender Information Value Date Recorded Sex Assigned at Not on file Legal Sex Female 8:13 PM CDT Gender Identity Not on file Sexual Orientation Not on file Last Filed Vital Signs Vital Sign Reading Time Taken Comments Blood Pressure 112/68 12/28/2023 8:21 AM CDT Pulse 78 12/28/2023 8:21 AM CDT Temperature 36.5 C (97.7 F) 12/28/2023 8:21 AM CDT Respiratory Rate 18 12/28/2023 8:21 AM CDT Oxygen Saturation 99% 12/28/2023 8:21 AM CDT Inhaled Oxygen Concentration - - Weight 64.5 kg (142 lb 3.2 oz) 12/28/2023 8:21 A M CDT Height 162.6 cm (5' 4 ) 12/28/2023 8:21 AM CDT Body Mass Index 24.41 12/28/2023 8:21 AM CDT Plan of Treatment Health Maintenance Due Date Last Done Comments Cervical Cancer Screening Pap Smear (Age 30 to 64) Every 3 Years 1988 Hepatitis B Vaccines (1 of 3 - 19+ 3-dose series) 08/28/2007 Cervical Cancer Screening Pap with HPV Testing (Age 30 to 64) Every 5 Years 2018 Cervical Cancer Screening with HPV 2018 COVID-19 Vaccine (3 - season) 2024 03/30/2021, 07/28/2020 Influenza Adult (#1) 2024 03/21/2022, 02/24/2021, 02/22/2020, Additional history exists PHQ-2 (Physician [place]) 05/22/2024 07/06/2023 Annual Physical 07/06/2024 07/06/2023, 12/23/2020 DTaP, Tdap and Td Vaccines (3 - Td or Tdap) 09/02/2032 09/02/2022, 11/06/2018 Hepatitis C Completed 12/23/2020 HPV Vaccines Aged Out No longer eligi ble based on patient's age to complete this topic Meningococcal B Vaccine Aged Out No l onger eligible based on patient's age to complete this topic Meningococcal Vaccine Aged Out No bhaskar tani eligible based on patient's age to complete this topic Pneumococcal Vaccine: Pediatrics (0 to 5 Years) and At-Risk Patients (6 to 64 Years) Aged Out No longer eligible based on patient's age to complete this topic RSV Immunizations Under 20 Months Aged Out No longer eligible based on patient's age to complete this topic Procedures Procedure Name Priority Date/Time Associated Diagnosis Comments HEPATITIS C ANTIBODY Routine 12/23/2020 9:46 AM CDT Healthcare maintenance from Last 3 Months or Most Recently Relevant to Health Maintenance Results * HEPATITIS C ANTIBODY (12/23/2020 9:46 AM CDT) HEPATITIS C AB NON-REACTI VE NON-REACT SERGIO 12/24/2020 6:[address] [facility] Comment: ANTIBODIES TO HCV NOT DETECTED. DOES NOT EXCLUDE THE POSSIBILITY OF EXPOSURE TO HCV. 12/23/2020 9:46 AM CDT [facility] Final Result [facility] [address] [place] [address], [id number] from Last 3 Months or Most Recently Relevant to Health Maintenance Insurance [facility] Care Teams Programmer Numerical Control Relationship Specialty Start Date End Date Nette Duffy APNP [address] [place] [address] PCP - General NURSE PRACTITIONER 12/22/20
--- OUTSIDE RECORDS SUMMARY | 2024-07-18 02:42 | XMS_ITS | Encounter Summary ---
Author Organization [facility] Address [facility] [place] [address] Care Team Providers Care Sustainability Analyst Name Role Phone Nette Duffy Primary Care Provider [phone] Encounter Details Date Type Department Care Team (Late st Contact Info) Description 03/17/2021 LoopUpt Message Enc [facility] Family and Sports Medicine - [place] [address] [place] [address] Nette Duffy APNP [address] [place] [address] RE: Test Results Social History Tobacco Use Types Packs/Day Years Used Date Smoking Tobacco: Former Cigarettes Smokeless Tobacco: Never Alcohol Use Standard Drinks/Week Comments Not Currently 0 (1 standard drink = 0.6 oz pur e alcohol) PHQ-2 Answer Date Recorded PHQ-2 Score - If the patient scores above 3, please move on to questions 3-9 1 12/23/2020 Comments No Sex and Gender Information Value Date Recorded Sex Assigned at Not on file Legal Sex Female 8:13 PM CDT Gender Identity Not on file Sexual Orientation Not on file COVID-19 Exposure Response Date Recorded In the last month, have you been in contact with someone who was confirmed or suspected to have Coronavirus / COVID-19? No / Unsure 03/17/2021 8:28 AM CDT documented as of this encounter Plan of Treatment Not on file documented as of this encounter Visit Diagnoses Not on filedocumented in this encounter Additional Health Concerns Assessment Noted Time PHQ-9 Depression Total Score: 8 12/24/19 10:30 AM CDT documented as of this encounter Care Teams Sustainability Analyst Relationship Specialty Start Date End Date Nette Duffy APNP [address] [place] [address] PCP - General NURSE PRACTITIONER 12/22/20 documented as of this encounter
--- OUTSIDE RECORDS SUMMARY | 2024-07-18 02:42 | XMS_ITS | Encounter Summary ---
Author Organization [facility] Address [facility] [place] [address] Care Team Providers Care Roll Up Operator Name Role Phone Nette Duffy Primary Care Provider [phone] Encounter Details Date Type Department Care Team (Late st Contact Info) Description 09/10/2021 MyChart Message Enc [facility] Medical Group Family and Sports Medicine - [place] [address] [place] [address] Nette Duffy APNP [address] [place] [address] Records Request for GI Social History Tobacco Use Types Packs/Day Years [...] Exposure Response Date Recorded In the last 10 days, have yo u been in contact with someone who was confirmed or suspected to have Coronavirus/COVID-19? No / Unsure 08/25/2021 8:28 AM CDT documented as of this encounter Progress Notes * Piper Forrest MA - 09/15/2021 9:05 AM CDT Information faxed to [phone] documented in this encounter Plan of Treatment Not on file documented as of this encounter Visit Diagnoses Not on filedocumented in this encounter Additional Health Concerns Assessment Noted Time PHQ-9 Depression Total Score: 8 12/24/19 10:30 AM CDT documented as of this encounter Care Teams Roll Up Operator Relationship Specialty Start Date End Date Nette Duffy APNP [address] [place] [address] PCP - General NURSE PRACTITIONER 12/22/20 documented as of this encounter
--- OUTSIDE RECORDS SUMMARY | 2024-07-18 02:42 | XMS_ITS | Patient Health Record ---
Author Organization [employer] Address [address] Rodrigues. [address] [place] [id number] Care Team Providers Care General Administrator Name Role Phone Sushil Duffy M.D. Primary Care Provider Unavail Jevon Stanton Unavailable [phone] Allergies No Known Allergies Reason For Referral No Information Medications Medication SIG (Take, Route, Frequency, Duration) Notes Start Date End Date Status OTC/Vitamins MVI, Vit D3, Fis h Oil, Collagen Active Balcoltra Active Phentermine HCl Acti ve Magnesium Citrate Ac tive Florastor Active Digestive Enzyme Act pradeep Hyoscyamine 125 mg twice a day Active Ondansetron 4 MG as directed Orally A s needed Active Social History Tobacco Use: Social History Observation Description Date Details (start date - stop date) Never Smoker NA - NA Tobacco Use/Smoking Question Answer Notes Are you a nonsmoker Problems Problem Type SNOMED Code ICD Code Onset Dates Problem Status W/U Status Risk Notes Problem 411306101 Family history of colonic polyps (Z83.71) Active confirmed She has a family history of colon polyps in her father. Problem 987254078 Bloating (R14.0) Active confirmed She has had chronic abdominal bloating for the past year. She has had extensive evaluation with upper endoscopy, ultrasound, HIDA scan, CT, and MRI, which has been unremarkable. She has also been treated with 2 rounds of Xifaxan. She is currently on a low FODMAP, gluten free diet and has seen some improvement in symptoms. Problem 17342033 Constipation (K59.00) Active confirmed Problem 065351312 Chronic constipation (K59.09) Active confirmed She has had chronic constipation since she was a young child. She was taking MiraLax for years. More recently, she has been using a probiotic and magnesium citrate and is happy to report that she is moving her bowels regularly. There has not been any blood in her stool. I suspect her symptoms are functional in nature and also related to food sensitivities. Plan Of Treatment Pending Test Test Name Order Date Colonoscopy 09/27/2021 Initiate SIBO 09/24/2021 Insurance Providers Payer Name Payer Address Payer Phone Subscriber Number Group Number Insured Name Patient Relationship to Insured Coverage Start Date Coverage End Date [address] [place] [phone] [id number] Cade Wu Spouse - patient is the spouse of the insured Medical (General) History Medical History History ICD Code GERD Hypertension Surgical History Surgery Date(Month/Year) EGD (Dr. Denny) 02/2021 Tonsillectomy Labrum Repair
--- OUTSIDE RECORDS SUMMARY | 2024-07-18 02:42 | XMS_ITS | Referral Summary ---
Author Organization [facility] Address [address] [place] [address] Care Team Providers Care Cisco Unified Communications Engineer Name Role Phone Nette Duffy Primary Care Provider [phone] Source Comments [facility],non-owned Affiliates and Associated Physician Practices is amultiple site organization consisting of ambulatory clinics and hospital sitesin [place], [place], [place] and [place]. This disclosure is being madepursuant to the Care Everywhere program and may not contain all information available regarding this patient. Last updated 18.[facility] Encounters Date Type Department Care Team Description 07/15/2024 10:45 AM CLINICAL INFORMATICS EDUCATOR - 07/15/2024 11:59 PM CLINICAL INFORMATICS EDUCATOR Hospital [facility] [address] [place] [address] Unknown, Provider Discharge Disposition: Home or Self Care 07/15/2024 Travel from Last 3 Months Allergies No known active allergies Medications * Be aware that medications may not be up to date on this document. Alwaysverify current medications with the patient. Medication Sig Dispensed Refills Start Date End Date Status methylPREDNISolone (MEDROL DOSEPAK) 4 MG tablet Take by mouth as directed Follow package insert dosing for six day supply. 21 tablet 01/25/2019 Active acetaminophen (TYLENOL) 500 MG tablet Take 2 tablets by mouth every 6 hours as needed for Fever or Pain Maximum allowable Acetaminophen amount = 4 Grams (4000 mg) / 24 hours. 30 tablet 01/25/2019 Active fluconazole (DIFLUCAN) 150 MG tablet Take 1 tablet by mouth once as needed (if signs of yeast infection develop) 1 tablet 1 01/25/2019 Active Social History Tobacco Use Types Packs/Day Years Used Date Smoking Tobacco: Never Smokeless Tobacco: Never Alcohol Use Standard Drinks/Week Comments Never 0 (1 standard drink = 0.6 oz pur e alcohol) AUDIT-C Answer Date Recorded Frequency of Alcohol Consumption Never 01/25/2019 Average Number of Drinks Not on file 019 Frequency of Binge Drinking Not on file 10/2018 Sex and Gender Information Value Date Recorded Sex Assigned at Not on file Gender Identity Not on file Sexual Orientation Not on file Last Filed Vital Signs Vital Sign Reading Time Taken Comments Blood Pressure 110/70 01/25/2019 10:25 PM CDT Pulse 123 01/25/2019 8:01 PM CDT Temperature 37.4 C (99.3 F) 01/25/2019 10:08 PM CDT Respiratory Rate 19 01/25/2019 8:01 PM CDT Oxygen Saturation 95% 01/25/2019 10:26 PM CDT Inhaled Oxygen Concentration - - Weight 83.5 kg (184 lb) 01/25/2019 8:01 PM CDT Height 162.6 cm (5' 4 ) 01/25/2019 8:01 PM CDT Body Mass Index 31.58 01/25/2019 8:01 PM CDT Plan of Treatment Not on file Procedures Procedure Name Priority Date/Time Associated Diagnosis Comments HGB HCT PANEL Routine 07/15/2024 11:01 AM CLINICAL INFORMATICS EDUCATOR Excessive bleeding from Last 3 Months Results * HGB HCT PANEL (07/15/2024 11:01 AM CLINICAL INFORMATICS EDUCATOR) Hemoglobin 12.6 11.9 - 15.8 g/dL 07/15/2024 11:22 AM CLINICAL INFORMATICS EDUCATOR [facility] Hematocrit 38.1 34.8 - 46.1 % 07/15/2024 11:22 AM CLINICAL INFORMATICS EDUCATOR [facility] Blood BLOOD SPECIMEN / Unknown Venipuncture / Unknown 07/15/2024 11:01 AM CLINICAL INFORMATICS EDUCATOR 07/15/2024 11:05 AM CLINICAL INFORMATICS EDUCATOR Provider Unknown LAB - HEMATOLOGY ORD ERABLES [facility] [address] [place] [address], [facility] from Last 3 Months Care Teams Cisco Unified Communications Engineer Relationship Specialty Start Date End Date Nette Duffy [address] [place] [address] PCP - General 09/28/22
--- OUTSIDE RECORDS SUMMARY | 2024-07-18 02:42 | XMS_ITS | Patient Health Summary ---
Author Organization [facility] Address [address] [place] [address] Care Team Providers Care Monitor Technician Name Role Phone Nette Duffy Primary Care Provider [phone] Note from [facility],non-owned Affiliates and Associated Physician Practices is amultiple site organization consisting of ambulatory clinics and hospital sitesin [place], [place]. This disclosure is being madepursuant to the Care Everywhere program and may not contain all information available regarding this patient. Last updated 18.[facility] Allergies No known active allergies Medications * Be aware that medications may not be up to date on this document. Alwaysverify current medications with the patient. * methylPREDNISolone (MEDROL DOSEPAK) 4 MG tablet(Started 01/25/2019) Take by mouth as directed Follow package insert dosing for six day supply. * acetaminophen (TYLENOL) 500 MG tablet(Started 01/25/2019) Take 2 tablets by mouth every 6 hours as needed for Fever or Pain Maximum allowable Acetaminophen amount = 4 Grams (4000 mg) / 24 hours. * fluconazole (DIFLUCAN) 150 MG tablet(Started 01/25/2019) Take 1 tablet by mouth once as needed (if signs of yeast infection develop) 1 refill remaining Social History Tobacco Use Types Packs/Day Years [...] Mass Index 31.58 01/25/2019 8:01 PM CDT Procedures * HGB HCT PANEL(Performed 07/15/2024) Performed for Excessive bleeding * MAMMO BILAT SCREENING W VALENTIN(Performed 03/01/2024) Performed for Screening mammogram for breast cancer * DERMATOPATHOLOGY(Performed 04/20/2022) Performed for Neoplasm of uncertain behavior of skin Results * HGB HCT PANEL (07/15/2024 11:01 AM PRODUCTION TROUBLESHOOTER) Hemoglobin 12.6 11.9 - 15.8 g/dL 07/15/2024 11:22 AM PRODUCTION TROUBLESHOOTER [facility] Hematocrit 38.1 34.8 - 46.1 % 07/15/2024 11:22 AM PRODUCTION TROUBLESHOOTER [facility] Blood BLOOD SPECIMEN / Unknown Venipuncture / Unknown 07/15/2024 11:01 AM PRODUCTION TROUBLESHOOTER 07/15/2024 11:05 AM PRODUCTION TROUBLESHOOTER Provider Unknown LAB - HEMATOLOGY ORD ERABLES [facility] [address] [place], [place] [address] * Mammo Bilat Screening W Valentin (03/01/2024 2:07 PM CDT) Anatomical Region Laterality Modality Breast Bilateral Mammography 03/01/2024 2:12 PM CDT Narrative 03/01/2024 2:14 PM CDT DIGITAL BILATERAL SCREENING MAMMOGRAMS WITH CAD AND 3-D TOMOSYNTHESIS DATE: 03/01/2024 PREVIOUS EXAM DATE: No prior examination. This is the patient's first visit for breast exam. INDICATION: Screening. TECHNIQUE: Bilateral 3-D tomosynthesis and synthesized 2-D views in craniocaudad (CC) and mediolateral oblique (MLO). Images were interpreted with the aid of CAD. TISSUE DENSITY: The breasts are heterogeneously dense, which may obscure small masses FINDINGS: There are no suspicious masses or microcalcifications. No architectural distortion is appreciated on tomosynthesis. There has been no significant interval change since previous examination. ASSESSMENT: Negative, BI-RADS 1. RECOMMENDATIONS: Continue annual screening mammography in one year. The above findings should be correlated with physical examination. A relatively nonspecific study should not preclude additional evaluation if suspicious findings are present clinically. An [employer]. [facility] Breast [facility] utilizes [employer] as a reminder system to notify patients of their next recommended mammograms. > Interpreting Provider: Lilia Mike MD on 03/01/2024 2:14 PM Ordering Provider Unlisted MD KOLBY GALVAN * DERMATOPATHOLOGY (04/20/2022 12:00 AM PRODUCTION TROUBLESHOOTER) Case Report Dermatopathology Report Case: [id number] Authorizing Provider: Regina Winters MD Collected: 04/20/2022 12:00 AM Ordering Location: [facility] Lab Received: 04/21/2022 12:21 PM Pathologist: Juanpablo Beard MD Specimens: A) - Skin, right proximal pedro B) - Skin, right posterior neck 5:14 PM PRODUCTION TROUBLESHOOTER DERMATOPATHOLOGY LABORATORY Final Diagnosis Specimen A. SKIN, right proximal pedro: DERMATOFIBROMA (D23.9) Specimen B. SKIN, right posterior neck: COMBINED NEVUS (BANAL & HYPOPIGMENTED BLUE) (D22.9) PRESENT AT MARGIN (see microscopic description and comment) 5:14 PM PRODUCTION TROUBLESHOOTER DERMATOPATHOLOGY LABORATORY Clinical History A: Dermatofibroma B: Atypical Nevus vs. Inflamed Nevus 5:14 PM PRODUCTION TROUBLESHOOTER DERMATOPATHOLOGY LABORATORY Gross Description Specimen A: Received is one formalin filled container labeled with the patient's name and designated right proximal pedro. The specimen consists of a shave biopsy measuring [id number]. Jar 0. Specimen B: Received is one formalin filled container labeled with the patient's name and designated right posterior neck. The specimen consists of a shave biopsy measuring [id number]. Jar 0. 2 5:14 PM [facility] DERMATOPATHOLOGY [facility]ORY Microscopic Description Specimen A. SKIN, right proximal pedro: There is epidermal hyperplasia. Within the dermis, there are fibrohistiocytic cells in haphazard array among coarse collagen bundles. Specimen B. SKIN, right posterior neck: Within the dermis, there are oval and dendritic shaped melanocytes. There are also nests of round and oval melanocytes. This lesion is present at the margin of the specimen. COMMENT: If this specimen is sampled from a larger lesion, these findings may not be sales representative printing paper of the entire lesion. Clinicopathologic correlation is recommended. 2 5:14 PM [facility] DERMATOPATHOLOGY [facility]ORY Disclaimer An external and internal positive and negative controls are appropriate for the histochemical, immunohistochemical and immunofluorescence stain(s) in this case (if any), except where stated explicitly. The performance characteristics of the stain(s) cited in this report were developed and its performance characteristic determined by the Dermatopathology Laboratory at [facility], directed by Dr. Mary Beard. These tests need not be, and therefore are not, approved by the [place] Food and Drug Administration. The tests are used for clinical purposes. Billing Codes Specimen Charges Stain Charges 09107 84442 1 1 2 5:14 PM [facility] Embedded Images 2 5:14 PM [facility] Pathology/Cytology TISSUE SPECIMEN FROM SKIN / Unknown 04/20/2022 04/21/2022 12:21 PM PRODUCTION TROUBLESHOOTER Miscellaneous samples (specimen) TISSUE SPECIMEN FROM SKIN / Unknown 04/20/2022 04/21/2022 12:21 PM PRODUCTION TROUBLESHOOTER Regina Winters MD LAB - PATHOLOGY/CYTO LOGY ORDERABLES DERMATOPATHOLOGY LABORATORY [facility] - Department of Dermatology [address] [place], [place] [address] [phone] Care Teams Monitor Technician Relationship Specialty Start Date End Date Nette Duffy [address] [place] [address] PCP - General 09/28/22
--- OUTSIDE RECORDS SUMMARY | 2024-07-18 02:42 | XMS_ITS | Clinical Summary ---
Author Organization [facility] Address [address] [place] [address] Care Team Providers Care Veneer Redrier Name Role Phone Nette Duffy Primary Care Provider [phone] Source Comments [facility],non-owned Affiliates and Associated Physician Practices is amultiple site organization consisting of ambulatory clinics and hospital sitesin [place], [place], [place] and [place]. This disclosure is being madepursuant to the Care Everywhere program and may not contain all information available regarding this patient. Last updated 18.[facility] Allergies No known active allergies Medications * [...] infection develop) 1 tablet 1 01/25/2019 Active Encounters Date Type Department Care Team Description 07/15/2024 10:45 AM CHANNEL PROGRAM MANAGER - 07/15/2024 11:59 PM CHANNEL PROGRAM MANAGER Hospital Encounter [facility] - Laboratory [address] [place] [address] Unknown, Provider Discharge Disposition: Home or Self Care 07/15/2024 Travel from Last 3 Months Family History Medical History Relation Name Comments Cancer - Breast Paternal Grandmother Cancer - Ovarian Neg Hx Relation Name Status Comments Paternal Grandmother Social History Tobacco Use Types [...] 01/25/2019 8:01 PM CDT Plan of Treatment Health Maintenance Due Date Last Done Comments PAP SMEAR 1988 HIV SCREENING 08/28/2003 HEPATITIS C SCREENING 08/23/2006 DTAP/TDAP/TD VACCINES (1 - Tdap) 08/28/2007 HEPATITIS B VACCINE (1 of 3 - 19+ 3-dose series) 08/28/2007 COVID-19 VACCINE (2023-2 5 season) 2024 INFLUENZA VACCINE (#1) 2024 DEPRESSION SCREENING 05/22/2024 ZOSTER VACCINE (1 of 2) 2038 HIB VACCINE Aged Out No longer eligi ble based on patient's age to complete this topic HPV VACCINE Aged Out No longer eligi ble based on patient's age to complete this topic MENINGOCOCCAL (Group B) VACCINE Aged Out No longer eligible based on patient's age to complete this topic MENINGOCOCCAL VACCINE Aged Out No bhaskar tani eligible based on patient's age to complete this topic PNEUMOCOCCAL VACCINE Aged Out No long er eligible based on patient's age to complete this topic Procedures Procedure Name Priority Date/Time Associated Diagnosis Comments HGB HCT PANEL Routine 07/15/2024 11:01 AM CHANNEL PROGRAM MANAGER Excessive bleeding from Last 3 Months Results * HGB HCT PANEL (07/15/2024 11:01 AM CHANNEL PROGRAM MANAGER) Hemoglobin 12.6 11.9 - 15.8 g/dL 07/15/2024 11:22 AM CHANNEL PROGRAM MANAGER [facility] Hematocrit 38.1 34.8 - 46.1 % 07/15/2024 11:22 AM CHANNEL PROGRAM MANAGER [facility] Blood BLOOD SPECIMEN / Unknown Venipuncture / Unknown 07/15/2024 11:01 AM CHANNEL PROGRAM MANAGER 07/15/2024 11:05 AM CHANNEL PROGRAM MANAGER Provider Unknown LAB - HEMATOLOGY ORD ERABLES [facility] [address] [place] [address], [facility] from Last 3 Months Care Teams Veneer Redrier Relationship Specialty Start Date End Date Nette Duffy [address] [place] [address] PCP - General 09/28/22
--- NOTE | 2024-07-18 05:08 | WPDHPUPDATE1 ---
History and Physical Update Update Date/Time: 07/18/24 05:08 History and Physical has been reviewed, including an updated exam of the patient. There are NO changes in the patient's condition. Risks, benefits, and alternatives have been discussed and questions answered. Patient agrees to proceed with procedure.
[2024-07-18 06:22] VITALS: BMI 22.8
[2024-07-18] MEDS: LACTATED RINGERS 1,000 ML 30 ML IV CONT (06:55)
[2024-07-18] MEDS: ACETAMINOPHEN 500 MG TABLET 1000 MG PO (07:05)
[2024-07-18 07:17] VITALS: BP 112/63; PULSE 80; RESP 14; TEMP 36.3; O2SAT 100
[2024-07-18 07:17] LABS: BEDSIDEPREGUCG Negative (Negative)
--- NOTE | 2024-07-18 08:08 | WPDANESEPPF ---
Anes - Initial Pre Proc Eval Procedure: Operation Date: 07/18/24 08:30 Proposed Procedures p Hysteroscopy Dilation and Curettage with Jennifer Endometrial Ablation - Hari Lozano MD Date/Time: 07/18/24 08:08 Surgeon: Hari Lozano MD Pre Op Diagnosis: irregular excessive bleeding Patient Data Age: 33 Gender: F Height: 1.63 m Weight: 60.3 kg Last Vital Signs Temp 97.4 F L 07/18/24 07:17 Pulse 80 07/18/24 07:17 Resp 14 07/18/24 07:17 BP 112/63 07/18/24 07:17 Pulse Ox 100 07/18/24 07:17 O2 Del Method Room Air 07/18/24 07:17 Allergies Allergy/AdvReac Type Severity Reaction Status Date / Time No Known Allergies Allergy Verified 07/18/24 07:14 Home Medications ?Medication ?Instructions ?Recorded ?Confirmed ?Type tirzepatide (weight loss) 10 12.5 mg subcut .every 3 weeks 03/19/24 07/18/24 History mg/0.5 mL subcutaneous pen injector (Zepbound) hydrocodone 5 mg-acetaminophen 325 1 tablet PO Q4H PRN pain #20 tabs 07/18/24 Rx mg tablet Laboratory Tests 07/18/24 06:30 POC Urine HCG, Qual Negative (Negative) Patient hx anesthesia problems: none Family hx anesthesia problems: none Results Review: All pre-operative results and documents have been reviewed as part of the pre-operative evaluation. [facility] Family History Family History Mother Diabetes mellitus Hypertension High cholesterol Father Diabetes mellitus Myasthenia gravis Sibling Hypertension High cholesterol Grandparent Heart disease Uterine cancer Skin cancer Diabetes mellitus Hypertension Dementia Breast cancer in female Social History Social History Smoking status: Never smoker Second hand tobacco smoke exposure: No Alcohol intake: former Substance use: never Lack of Transportation: No Lack of Food: Never True Current Housing: I Have Housing Concerned About Future Housing: No Difficulty Paying Gas/Electric Bills: No Difficulty Paying for Meds: No Currently Unemployed: No Education: Master's Degree or Higher Difficulty w/ Childcare or Family Care: No Living arrangements: with family Spiritual care concerns: No Anes - Eval Final PreProcedure Day of Procedure 07/18/24 08:08 Patient weight: normal Lungs: normal air movement Airway: Mallampati scale class II Neurological: alert and oriented Last oral intake: >/= 8 hours ASA classification: I Emergent: no Anesthetic plan: proceed Anesthesia type and monitoring: general GIVS and standard monitoring Results Review: All pre-operative results and documents have been reviewed as part of the pre-operative evaluation. Healthy, off GLP1 for 10 days. Informed Consent: The patient's anesthetic plan and its attendant risks and benefits were discussed with the patient/family/POA. Questions were solicited and answers provided to the satisfaction of the patient/family/POA.
[2024-07-18] MEDS: LIDOCAINE 1% LOCAL INJ 10 ML VIAL INFILTRATE (08:19)
[2024-07-18] MEDS: KETOROLAC 30 MG/ML VIAL (*BKC) IV PUSH (08:35)
--- NOTE | 2024-07-18 08:43 | W.PM.PROC2 ---
Procedure Note - Detailed Date of Procedure 07/18/24 Pre-op Diagnosis irregular excessive bleeding Post-op Diagnosis Same Procedure Performed Hysteroscopy/dilatation curettage/Jennifer ablation Surgeon Hari Lozano MD Anesthesia MAC and Local Indications 33-year-old female status post tubal ligation admitted for hysteroscopy D&C and ablation Findings Uterus sounded 8cm. Thick endometrial tissue but no evidence of polyp or other pathologic findings Description of Procedure Patient was prepped draped in the normal sterile fashion placed in the dorsal lithotomy position. Under excellent IV sedation weighted speculum placed in posterior fornix vagina. Anterior lip of the cervix grasped with a single-tooth tenaculum. 2.5cc 1% xylocaine anesthesia placed at 2 4, 8, 10:00 a.m. of the cervix. Uterus sounded 8cm. Serial dilatation with fragmented dilators performed followed by passage of 5mm visualizing hysteroscope. Normal saline was used as visualizing medium. Thick endometrial tissue was present in each fallopian tube os could be seen but no evidence of polyp or other definitive pathology. Uterus then scraped over the entire 360? until good grating sound was heard. Instruments withdrawn and the Jennifer instrument placed in the uterus the instrument was placed at the appropriate depth and burned for 120seconds. This was removed the hysteroscope was reinserted and a good burn was seen. The instruments withdrawn the vagina swabbed the instruments withdrawn from the vagina the patient was awakened blood loss estimated 5cc. All sponge, needle, instrument counts were correct. There were no immediate complications noted Estimated Blood Loss 5 Drains No Packing No Pathology Yes Complications No immediate complications Condition Stable Disposition PACU
[2024-07-18 08:45] VITALS: BP 101/63; PULSE 75; RESP 16; O2SAT 100
[2024-07-18 09:15] VITALS: BP 96/52; PULSE 57; RESP 16; O2SAT 99
[2024-07-18] MEDS: oxyCODONE HCL (*CRX) 5 MG TAB IR PO (09:25)
[2024-07-18 09:45] VITALS: BP 106/61; PULSE 58; RESP 14
== END 2024-07-18 09:55 | disposition home or self-care (01) ==
PROVIDERS: PCP Nurse Practitioner; Visit Provider Obstetrics & Gynecology
PROC: 0U5B8ZZ Destruction of Endometrium, Via Natural or Artificial Opening Endoscopic (ICD-10-PCS; CPT 58563; principal; 2024-07-18 08:30)
DX: N93.9 Abnormal uterine and vaginal bleeding, unspecified (principal); Z98.51 Tubal ligation status
CPT/HCPCS: 58563; 88305; A9270; J1885; J2003; J2250; J2704; J3010; J7120